=== PATIENT | male | born 1965 | race Caucasian/White ===

== ENCOUNTER 2016-09-06 10:21 | Emergency (ER) | payer SELFPAY ==
--- NOTE | 2016-09-06 11:25 | C.PDOC ---
History Of Present Illness 51 y/o male presents to the ED for evaluation of possible high blood pressure. Patient reports feeling nervous and lightheaded earlier today. He also states he had his blood drawn 2 weeks ago here at [facility], but was unable to obtain his blood work results. He denies history of HTN, chest pain, shortness of breath , abdominal pain, headache, visual changes, facial droop, slurred speech, extremity weakness, sensory changes. Time Seen by Provider: 09/06/16 10:32 Chief Complaint (Nursing): Anxiety History Per: Patient History/Exam Limitations: no limitations Onset/Duration Of Symptoms: Gradual Current Symptoms Are (Timing): Still Present Suicide/Self Injury Attempted (Context): None Severity: None Pain Scale Rating Of: 0 Involuntary Hold By: None Additional History Per: Patient Past Medical History Reviewed: Historical Data, Nursing Documentation, Vital Signs Vital Signs: Last Vital Signs Temp 98 F 09/06/16 11:33 Pulse 76 09/06/16 11:33 Resp 16 09/06/16 11:33 BP 130/90 09/06/16 11:33 Pulse Ox 100 09/06/16 17:06 Family History: States: No Known Family Hx - Social History Hx Alcohol Use: No Hx Substance Use: No - Immunization History Hx Tetanus Toxoid Vaccination: No Hx Influenza Vaccination: No Hx Pneumococcal Vaccination: No Review Of Systems Except As Marked, All Systems Reviewed And Found Negative. Constitutional: Negative for: Fever, Chills Cardiovascular: Positive for: Light Headedness. Negative for: Chest Pain, Palpitations Respiratory: Negative for: Cough, Shortness of Breath Gastrointestinal: Negative for: Nausea, Vomiting, Abdominal Pain Neurological: Negative for: Weakness, Numbness, Headache, Dizziness Physical Exam - Physical Exam Appears: Non-toxic, No Acute Distress, Other (anxious appearing ) Skin: Normal Color, Warm, Dry Head: Normacephalic Eye(s): bilateral: Normal Inspection Oral Mucosa: Moist Neck: Supple Chest: Symmetrical Cardiovascular: Rhythm Regular Respiratory: Normal Breath Sounds, No Rales, No Rhonchi, No Wheezing Gastrointestinal/Abdominal: Normal Exam, Bowel Sounds, Soft, No Tenderness Extremity: Normal ROM Extremity: Bilateral: Atraumatic, Normal Color And Temperature, Normal ROM Neurological/Psych: Oriented x3, Normal Speech, Normal Cognition, Normal Cranial Nerves, No Cerebellar Signs, Normal Motor, Normal Sensation Gait: Steady ED Course And Treatment O2 Sat by Pulse Oximetry: 100 (on RA) Pulse Ox Interpretation: Normal Progress Note: Patient given PO Xanax in ED. Prior blood tests reviewed and were WNL - copies given to patient and he was reassured. Reevaluation Time: 11:30 Reassessment Condition: Improved (Patient reassessed, states he feels much better. Vitals WNL, and patient comfortable being discharged home. He was given copies of recent blood work, and he was instructed to follow up with PMD/ clinic in 1-2 days. Patient understands he should return to ED if symptoms worsen.) Disposition Counseled Patient/Family Regarding: Diagnosis, Need For Followup, Rx Given - Disposition Referrals: [facility] [Outside] Disposition: HOME/ ROUTINE Disposition Time: 11:30 Condition: STABLE Additional Instructions: FOLLOW UP WITH YOUR DOCTOR OR IN THE MEDICAL CLINIC IN 1-2 DAYS USE MEDICATION NEEDED FOR ANXIETY RETURN TO EMERGENCY ROOM IF SYMPTOMS WORSEN Prescriptions: ALPRAZolam [Xanax] 0.25 mg PO Q6 PRN #15 tab PRN Reason: Anxiety Instructions: Anxiety (ED) Print Language: [place] - Clinical Impression Clinical Impression: Anxiety - Scribe Statement The provider has reviewed the documentation as recorded by the Brynnibe Kenrick Sutherland Provider Attestation: All medical record entries made by the Brynnibkatarzyna were at my direction and personally dictated by me. I have reviewed the chart and agree that the record accurately reflects my personal performance of the history, physical exam, medical decision making, and the department course for this patient. I have also personally directed, reviewed, and agree with the discharge instructions and disposition.
[2016-09-06 11:34] VITALS: BP 130/90; PULSE 76; RESP 16; TEMP 98
[2016-09-06 16:51] VITALS: O2SAT 100
== END 2016-09-06 11:34 | disposition home or self-care (01) ==
LOC: C.ER 10:21
DX: F41.9 Anxiety disorder, unspecified (principal)